=== PATIENT | male | born 1960 | race Caucasian/White ===

== ENCOUNTER → 2023-05-26 09:59 | Outpatient (BNVA) | payer MEDICARE, SELFPAY | PROVIDERS: PCP Family Medicine; Visit Provider Family Medicine | DX: Z12.5 Encounter for screening for malignant neoplasm of prostate (principal); I10 Essential (primary) hypertension; N40.0 Benign prostatic hyperplasia without lower urinary tract symptoms; F41.9 Anxiety disorder, unspecified; E78.00 Pure hypercholesterolemia, unspecified; M65.4 Radial styloid tenosynovitis [de Quervain] | CPT/HCPCS: 80053; 80061; 84153; 85025 ==

== ENCOUNTER 2023-08-19 00:16 | Emergency (ER) | payer MEDICARE, SELFPAY ==
[2023-08-19 00:22] VITALS: BP 149/101; PULSE 67; RESP 18; TEMP 37; O2SAT 98; BMI 31.8
--- NOTE | 2023-08-19 00:44 | XRR_ITS ---
PROCEDURE INFORMATION: Exam: XR Chest Exam date and time: 08/19/2023 12:52 AM Age: 63 years old Clinical indication: Wheezing; Additional info: Wheezing/allergic rxn TECHNIQUE: Imaging protocol: Radiologic exam of the chest. Views: 1 view. COMPARISON: No relevant prior studies available. FINDINGS: Lungs: No consolidation. Pleural spaces: No large pleural effusion. No pneumothorax. Heart/Mediastinum: Unremarkable. No cardiomegaly. Bones/joints: No acute abnormality. XR/XR chest 1V portable [id number] IMPRESSION: No acute findings.
--- NOTE | 2023-08-19 00:44 | W.ED.ALLEREA ---
Documented by User: ELANA Nice 08/19/23 00:54 HPI - Allergic Reaction General: Chief complaint: Allergic Reaction Stated complaint: allergic rxn Time Seen by Provider: 08/19/23 00:32 Source: patient Mode of arrival: ambulatory Limitations: no limitations History of Present Illness: HPI narrative: Patient is a 63-year-old male who presents to the emergency department due to allergic reaction onset tonight. Patient states he was lying in bed around 2300 when he noted sudden onset of chills and like he had the need to use the bathroom. He states he rushed to the bathroom and had diarrhea, and when he checked his skin he noticed that he had welts covering his entire torso, and the posterior aspect of his legs. He denies any known contact allergens such as new bedsheets or detergent, and also denies eating any new exotic foods. [place] that [place] he was exposed to a different kind of fertilizer than normal. Also leading up to his symptoms, he notes increased sneezing throughout the day. Otherwise, he has no idea what could have caused his acute allergic reaction. He also states that during his episode, he had shortness of breath and was wheezing. However, he did not experience any throat closing or tongue swelling. His last medication change was lisinopril, but states this was a long time ago and he has not had issues since. He took 2 Benadryl following the noticing of his welts, and states that during the drive to the ER his skin had cleared up. He now states he has no symptoms, but still feels like his chest is a little tight from the wheezing. MD complaint: allergic reaction Onset (ago): hour(s) Exposure: unknown Associated symptoms: Deny abdominal pain, nausea or vomiting Treatment prior to arrival: benadryl Previous Allergic Reaction History: none Review of Systems General: Reports: 10 or more systems reviewed and unremarkable except in HPI and below Const: Denies: fever(s), chills or fatigue Eyes: Denies: change in vision ENMT: Denies: throat pain, ear or mastoid pain or nasal discharge Card: Denies: chest pain, palpitations, swelling of feet/ankles or lightheadedness Resp: Reports: dyspnea and wheezing; Denies: productive cough GI: Reports: diarrhea; Denies: abdominal pain, nausea, vomiting or constipation : Denies: flank pain, difficulty urinating, dysuria or urinary frequency Musc: Denies: neck pain, back pain or joint pain Skin/Breast: Reports: rash and pruritus Neuro: Denies: headache(s), numbness in extremities or weakness in extremities PFSH ED PFSH: Medical History Hypertension Hypercholesteremia Anxiety Family History Mother Cancer breast Other Hyperlipidemia Hypertension Stroke Denies family history of Liver disease Diabetes CAD (coronary artery disease) Aneurysm Autoimmune disease Clotting disorder Dementia Psychiatric illness Chronic kidney disease (CKD) Bleeding disorder Lung disease Thyroid disease Social History Smoking and tobacco/nicotine status: never used tobacco/nicotine Alcohol intake: never Substance/Drug Use: never Lives independently: Yes Marital status: Current occupational status: retired Physical Exam Const: COMMON NORMALS: no acute distress, patient oriented x3 and no limitations GENERAL APPEARANCE: cooperative, comfortable and well developed ORIENTATION/CONSCIOUSNESS: Yes awake, Yes oriented to person, Yes oriented to place and Yes oriented to time HENMT: COMMON NORMALS: normocephalic, atraumatic and hearing grossly normal bilaterally HEAD & SCALP: normocephalic and atraumatic NOSE: Normal nares present, No nasal polyps present and Other nasal findings present (Erythema around both nares) MOUTH: Normal oral and palatal mucosa present, lip normal and tongue normal THROAT: posterior oropharynx normal, tonsils normal and uvula midline OTHER: No angioedema Eye: COMMON NORMALS: Equal, round and reactive pupils present, EOMs intact bilaterally and conjunctivae normal CONJUNCTIVA: Yes conjunctivae normal PUPIL: Yes Equal, round and reactive pupils present Neck/C-Spine: COMMON NORMALS: full ROM, supple and no JVD Resp: COMMON NORMALS: normal respiratory effort, No retractions, No use of accessory muscles and clear to auscultation bilaterally AUSCULTATION: clear to auscultation bilaterally Cardio: COMMON NORMALS: no JVD, regular rate, regular rhythm, No clicks present (Cardio), No murmurs present (Cardio) and No rub (Cardio) RATE: regular rate RHYTHM: regular rhythm Extremity: COMMON NORMALS: normal to inspection, full ROM and capillary refill normal Neuro: COMMON NORMALS: patient oriented x3, moves all extremities, no focal motor deficits and no sensory deficits noted SENSORIUM/ORIENTATION: Yes oriented to person, Yes oriented to place and Yes oriented to time Psych: COMMON NORMALS: mental status grossly normal and Normal thought process present THOUGHT PROCESS: Normal thought process present Skin: COMMON NORMALS: no rashes or lesions noted GENERAL SKIN EXAM: no rashes or lesions noted Course Vital Signs: Vital signs: Vital Signs Temperature 98.6 F 08/19/23 00:22 Pulse Rate 67 08/19/23 00:22 Respiratory Rate 18 08/19/23 00:22 Blood Pressure 149/101 08/19/23 00:22 Pulse Oximetry 98 08/19/23 00:22 Oxygen Delivery Me thod Room Air 08/19/23 00:22 MDM - Allergic Reaction Lab Data Radiology Impressions Chest X-Ray 08/19/23 00:44 IMPRESSION: No acute findings. Discharge Plan Discharge Patient Disposition: Home Clinical Impression: Allergic reaction, Urticaria Condition: Stable Prescriptions: New hydroxyzine HCl 25 mg tablet 25 mg PO TID PRN (Reason: itching) Qty: 30 0RF prednisone 20 mg tablet 40 mg PO DAILY 5 Days Qty: 10 0RF cetirizine [Zyrtec] 10 mg tablet 10 mg PO DAILY PRN (Reason: Hives/itching) Qty: 30 0RF No Action aspirin [Adult Aspirin Regimen] 81 mg tablet,delayed release (DR/EC) 81 mg PO DAILY lisinopril 40 mg tablet 40 mg PO DAILY Qty: 90 1RF sertraline 50 mg tablet 50 mg PO DAILY Qty: 90 1RF rosuvastatin 10 mg tablet 10 mg PO DAILY Qty: 90 0RF Discharge Orders: Discharge ED (Routine); Ordered 08/19/23 Ordered By: Samson Lam Referrals: Taiwo Mukherjee MD [Primary Care Provider] - Discharge Diet: Usual diet Discharge Activity: Resume usual activity Patient Instructions: Opioid Safety, Pain Management Activity Restrictions/Additional Instructions: Activity Restrictions/Additional Instructions: Thank you for choosing [facility] for your healthcare needs today. Please realize that you were seen in the Emergency Department and that we are providing you with an emergency medical screening exam and this may not be a complete and all inclusive of all the testing and or medical work-up that you may need to determine your ailment or severity of your illness. It is very important that you follow-up as instructed with your Primary care provider or Specialist for additional evaluation and to discuss your medical treatment plan. You may return to the Emergency Department should you have concerns or if your condition changes or worsens in any way. 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 [employer]wd Documented by User: Samson Lam MD 08/19/23 01:47 HPI - Allergic Reaction General: Chief complaint: Allergic Reaction Stated complaint: allergic rxn Time Seen by Provider: 08/19/23 00:32 [facility] PFSH: Medical History Hypertension Hypercholesteremia Anxiety Family History Mother Cancer breast Other Hyperlipidemia Hypertension Stroke Denies family history of Liver disease Diabetes CAD (coronary artery disease) Aneurysm Autoimmune disease Clotting disorder Dementia Psychiatric illness Chronic kidney disease (CKD) Bleeding disorder Lung disease Thyroid disease Social History Smoking and tobacco/nicotine status: never used tobacco/nicotine Alcohol intake: never Substance/Drug Use: never Lives independently: Yes Marital status: Current occupational status: retired Course Vital Signs: Vital signs: Vital Signs Temperature 98.6 F 08/19/23 00:22 Pulse Rate 67 08/19/23 00:22 Respiratory Rate 18 08/19/23 00:22 Blood Pressure 149/101 08/19/23 00:22 Pulse Oximetry 98 08/19/23 00:22 Oxygen Delivery Me thod Room Air 08/19/23 00:22 MDM - Allergic Reaction Medical Decision Making I discussed the patient's history of present illness, physical exam findings, pertinent labs, pertinent radiographic exams and plan of care with the midlevel provider. I did personally have a [id number] evaluation and discussion with the patient regarding the plan of care. Medical Records I reviewed the patient's medical records. Lab Data Radiology Impressions Chest X-Ray 08/19/23 00:44 IMPRESSION: No acute findings. All radiology interpretation(s) finalized by discharge Discharge Plan Discharge Patient Disposition: Home Clinical Impression: Allergic reaction, Urticaria Condition: Stable Prescriptions: New hydroxyzine HCl 25 mg tablet 25 mg PO TID PRN (Reason: itching) Qty: 30 0RF prednisone 20 mg tablet 40 mg PO DAILY 5 Days Qty: 10 0RF cetirizine [Zyrtec] 10 mg tablet 10 mg PO DAILY PRN (Reason: Hives/itching) Qty: 30 0RF No Action aspirin [Adult Aspirin Regimen] 81 mg tablet,delayed release (DR/EC) 81 mg PO DAILY lisinopril 40 mg tablet 40 mg PO DAILY Qty: 90 1RF sertraline 50 mg tablet 50 mg PO DAILY Qty: 90 1RF rosuvastatin 10 mg tablet 10 mg PO DAILY Qty: 90 0RF Discharge Orders: Discharge ED (Routine); Ordered 08/19/23 Ordered By: Samson Lam Referrals: Taiwo Mukherjee MD [Primary Care Provider] - Discharge Diet: Usual diet Discharge Activity: Resume usual activity Patient Instructions: Opioid Safety, Pain Management Activity Restrictions/Additional Instructions: Activity Restrictions/Additional Instructions: Thank you for choosing [facility] for your healthcare needs today. Please realize that you were seen in the Emergency Department and that we are providing you with an emergency medical screening exam and this may not be a complete and all inclusive of all the testing and or medical work-up that you may need to determine your ailment or severity of your illness. It is very important that you follow-up as instructed with your Primary care provider or Specialist for additional evaluation and to discuss your medical treatment plan. You may return to the Emergency Department should you have concerns or if your condition changes or worsens in any way. 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
[2023-08-19] MEDS: methylPREDNISolone sod succ 125 mg/2 mL INJ 60 MG IM (01:10)
[2023-08-19 01:25] VITALS: BP 168/102; PULSE 58; RESP 16; O2SAT 97
[2023-08-19 01:52] VITALS: PULSE 59; O2SAT 99
== END 2023-08-19 01:55 | disposition home or self-care (01) ==
PROVIDERS: Emergency Provider Physician Assistant; PCP Family Medicine
DX: T78.40XA Allergy, unspecified, initial encounter (principal); X58.XXXA Exposure to other specified factors, initial encounter; L50.0 Allergic urticaria; I10 Essential (primary) hypertension; Z79.82 Long term (current) use of aspirin
CPT/HCPCS: 71045; 96372; 99284; J2930